=== PATIENT | male | born 1990 | race African-American/Black ===

== ENCOUNTER 2020-03-26 12:29 | Emergency (ER) | payer SELFPAY ==
[~2020-03-26] VITALS: Ht 172.7 cm; Wt 125.0 kg
[2020-03-26] MEDS ORDERED: MORPHINE SULFATE 4 MG/ML CPJ (NOT FOR IM USE) IV STA (12:35)
[2020-03-26] MEDS ORDERED: ONDANSETRON HCL 4MG/2ML INJ IV STA (12:35)
[2020-03-26] MEDS ORDERED: SODIUM CHLORIDE 0.9% 1,000 ML IV ONE (12:45)
[2020-03-26] MEDS ORDERED: TETANUS, DIPHTHERIA, PERTUSSIS VAC/PF 0.5ML (>7YR OLD) IM ONE (12:45)
[2020-03-26] MEDS ORDERED: CEFAZOLIN 1000MG PREMIX 50 ML IV ONE (12:45)
[2020-03-26 12:46] LABS: BASOPHILS % 0.9 % (0.0-2.0); EOSINOPHILS % 0.9 % (0.0-5.0); HEMATOCRIT. 42.8 % (42.0-52.0); LYMPHOCYTES % 46.2 % (20.0-50.0); MEAN CORPUSCULAR HEMOGLOBIN 27.8 pg (28.0-32.0); MEAN CORPUSCULAR VOLUME 84.6 fL (80.0-94.0); MONOCYTES % 7.4 % (2.0-8.0); NEUTROPHILS % 44.6 % (40.0-76.0); PLATELET 323 x1000/uL (130-400); RED BLOOD CELL COUNT 5.05 mill/uL (4.7-6.1); RED CELL DISTRIBUTION WIDTH 13.6 % (11.6-14.6)
[2020-03-26 12:52] LABS: CHLORIDE 105 mEq/L (98-107)
[2020-03-26 12:57] LABS: ETHANOL BLOOD < 10 mg/dL
[2020-03-26] MEDS ORDERED: MORPHINE SULFATE 10 MG/ML CPJ IV ONE ×2 (13:00→13:45)
[2020-03-26 13:16] LABS: PARTIAL THROMBOPLASTIN TIME 25.1 sec (23.4-31.0); PROTHROMBIN TIME 10.4 sec (9.6-11.0)
[2020-03-26 13:45] VITALS: BP 148/84
[2020-03-26] MEDS ORDERED: MORPHINE SULFATE 4 MG/ML CPJ (NOT FOR IM USE) IV NR (13:45)
== END 2020-03-26 13:52 | disposition short-term general hospital (02) ==
LOC: ER 13:02
DX: S72.401B Unspecified fracture of lower end of right femur, initial encounter for open fracture type I or II (principal); W34.00XA Accidental discharge from unspecified firearms or gun, initial encounter; Y93.89 Activity, other specified; Y92.89 Other specified places as the place of occurrence of the external cause; Y99.8 Other external cause status
CPT/HCPCS: 36415; 71045; 72170; 73552; 76705; 80053; 80320; 82962; 85025; 85610; 85730; 90471; 90715; 96365; 96375; 99285; J0690; J2270; J2405; J7030; G0480